=== PATIENT | female | born 1940 | race Caucasian/White ===

== ENCOUNTER 2022-02-13 18:40 | Inpatient (IN) ==
[2022-02-14] MEDS ORDERED: Loratadine 10 MG TABLET PO PRN (12:23)
[2022-02-14] MEDS ORDERED: D5% in Water 1,000 ML IVC PRN (12:26)
[2022-02-14] MEDS ORDERED: Dextrose 4 GM Chewable Tablets PO PRN ×2 (12:26)
[2022-02-14] MEDS ORDERED: *HR* Dextrose 50 % in Water (Syg) 50 ML SYRINGE IVP PRN (12:26)
[2022-02-14] MEDS ORDERED: Acetaminophen 325 MG TABLET PO PRN (12:27)
[2022-02-14] MEDS ORDERED: Ondansetron ODT 4 MG TAB.RAPDIS SL PRN (12:27)
[2022-02-14] MEDS: Ergocalciferol (VIT D2) 50,000 UNIT (1.25MG) CAP PO SCH (17:23)
[2022-02-14] MEDS: *HR* LORazepam 1 MG TABLET PO SCH ×2 (17:29→20:44)
[2022-02-14] MEDS: Insulin LISPRO 300 UNITS/3 ML VIAL SUBQ SCH ×2 (17:29)
[2022-02-14] MEDS: *HR* Heparin 5,000 UNIT/ML VIAL SQ SCH (17:29)
[2022-02-14] MEDS: Insulin DETEMIR 100 UNIT/ML X5UNITS SUBQ SCH (21:04)
[2022-02-15] MEDS: *HR* Heparin 5,000 UNIT/ML VIAL SQ SCH ×2 (05:50→18:10)
[2022-02-15 07:51] LABS: Basophils % 0.3 %; Eosinophils # 0.4 K/mcL (0.0-0.6); Eosinophils % 6.2 %; Hematocrit 25.7 % (35.3-44.9); Hemoglobin 7.4 g/dL (11.5-15.4); Lymphocytes # 0.9 K/mcL (0.6-4.6); Lymphocytes % 12.9 %; Mean Corpuscular HGB Conc 28.8 g/dL (31.6-35.5); Mean Corpuscular Hemoglobin 28.2 pg (28.0-33.3); Mean Corpuscular Volume 98.1 fL (83.0-100.0); Mean Platelet Volume 11.2 fL (9.4-12.4); Monocytes # 0.8 K/mcL (0.0-1.3); Monocytes % 11.4 %; Neutrophils # 4.8 K/mcL (1.6-8.9); Platelet Count 216 K/mcL (140-400); Red Blood Count 2.62 M/mcL (3.82-4.97); Red Cell Distribution Width 14.1 % (11.5-14.5); Segmented Neutrophils % 68.2 %
[2022-02-15 07:52] LABS: Calcium 9.8 mg/dL (8.6-10.3); Potassium 4.1 mEq/L (3.5-5.1)
[2022-02-15 08:16] LABS: Hypochromasia Present (Not Present); Platelet Estimate Normal (Normal)
[2022-02-15] MEDS: Furosemide 40 MG TABLET PO SCH (08:18)
[2022-02-15] MEDS: Insulin LISPRO 300 UNITS/3 ML VIAL SUBQ SCH ×6 (08:18→17:40)
[2022-02-15] MEDS: Cyanocobalamin (B-12) 1,000 MCG TABLET PO SCH (08:18)
[2022-02-15] MEDS: *HR* LORazepam 1 MG TABLET PO SCH ×3 (08:18→21:39)
[2022-02-15] MEDS: amLODIPine 5 MG TABLET PO SCH (08:18)
[2022-02-15] MEDS: lisinopriL 20 MG TABLET PO SCH (08:18)
[2022-02-15] MEDS: Insulin DETEMIR 100 UNIT/ML X5UNITS SUBQ SCH (21:41)
[2022-02-16] MEDS: *HR* Heparin 5,000 UNIT/ML VIAL SQ SCH ×2 (05:34→17:11)
[2022-02-16] MEDS: Insulin LISPRO 300 UNITS/3 ML VIAL SUBQ SCH ×6 (07:36→17:11)
[2022-02-16] MEDS: amLODIPine 5 MG TABLET PO SCH (08:51)
[2022-02-16] MEDS: Furosemide 40 MG TABLET PO SCH (08:51)
[2022-02-16] MEDS: lisinopriL 20 MG TABLET PO SCH (08:51)
[2022-02-16] MEDS: *HR* LORazepam 1 MG TABLET PO SCH ×3 (08:52→22:30)
[2022-02-16] MEDS: Cyanocobalamin (B-12) 1,000 MCG TABLET PO SCH (08:52)
[2022-02-16] MEDS: Insulin DETEMIR 100 UNIT/ML X5UNITS SUBQ SCH (22:30)
[2022-02-17] MEDS: *HR* Heparin 5,000 UNIT/ML VIAL SQ SCH ×2 (06:39→22:17)
[2022-02-17 07:56] LABS: Calcium 9.2 mg/dL (8.6-10.3); Potassium 3.6 mEq/L (3.5-5.1)
[2022-02-17] MEDS: Insulin LISPRO 300 UNITS/3 ML VIAL SUBQ SCH ×6 (08:36→19:05)
[2022-02-17] MEDS: Cyanocobalamin (B-12) 1,000 MCG TABLET PO SCH (08:37)
[2022-02-17] MEDS: Furosemide 40 MG TABLET PO SCH (08:38)
[2022-02-17] MEDS: *HR* LORazepam 1 MG TABLET PO SCH ×3 (08:39→22:17)
[2022-02-17] MEDS: lisinopriL 20 MG TABLET PO SCH (08:50)
[2022-02-17] MEDS: amLODIPine 5 MG TABLET PO SCH (08:50)
[2022-02-17] MEDS: Insulin DETEMIR 100 UNIT/ML X5UNITS SUBQ SCH (22:18)
[2022-02-18] MEDS: Insulin LISPRO 300 UNITS/3 ML VIAL SUBQ SCH ×6 (09:04→17:23)
[2022-02-18] MEDS: Cyanocobalamin (B-12) 1,000 MCG TABLET PO SCH (09:06)
[2022-02-18] MEDS: amLODIPine 5 MG TABLET PO SCH (09:06)
[2022-02-18] MEDS: Furosemide 40 MG TABLET PO SCH (09:07)
[2022-02-18] MEDS: *HR* LORazepam 1 MG TABLET PO SCH ×3 (09:07→20:58)
[2022-02-18] MEDS: lisinopriL 20 MG TABLET PO SCH (09:07)
[2022-02-18] MEDS: *HR* Heparin 5,000 UNIT/ML VIAL SQ SCH ×2 (10:19→22:00)
[2022-02-18] MEDS: Insulin DETEMIR 100 UNIT/ML X5UNITS SUBQ SCH (20:57)
[2022-02-19] MEDS: lisinopriL 20 MG TABLET PO SCH (08:24)
[2022-02-19] MEDS: Insulin LISPRO 300 UNITS/3 ML VIAL SUBQ SCH ×6 (08:24→16:26)
[2022-02-19] MEDS: *HR* Heparin 5,000 UNIT/ML VIAL SQ SCH ×2 (08:24→19:59)
[2022-02-19] MEDS: *HR* LORazepam 1 MG TABLET PO SCH ×3 (08:25→19:59)
[2022-02-19] MEDS: Cyanocobalamin (B-12) 1,000 MCG TABLET PO SCH (08:25)
[2022-02-19] MEDS: amLODIPine 5 MG TABLET PO SCH (08:25)
[2022-02-19] MEDS: Furosemide 40 MG TABLET PO SCH (08:25)
[2022-02-19] MEDS: Insulin DETEMIR 100 UNIT/ML X5UNITS SUBQ SCH (19:59)
[2022-02-20] MEDS: Insulin LISPRO 300 UNITS/3 ML VIAL SUBQ SCH ×6 (09:54→17:04)
[2022-02-20] MEDS: amLODIPine 5 MG TABLET PO SCH (09:55)
[2022-02-20] MEDS: Cyanocobalamin (B-12) 1,000 MCG TABLET PO SCH (09:56)
[2022-02-20] MEDS: *HR* LORazepam 1 MG TABLET PO SCH ×3 (09:56→22:14)
[2022-02-20] MEDS: Furosemide 40 MG TABLET PO SCH (09:56)
[2022-02-20] MEDS: lisinopriL 20 MG TABLET PO SCH (09:57)
[2022-02-20] MEDS: *HR* Heparin 5,000 UNIT/ML VIAL SQ SCH ×2 (09:57→22:09)
[2022-02-20] MEDS: Insulin DETEMIR 100 UNIT/ML X5UNITS SUBQ SCH (22:09)
[2022-02-21] MEDS: *HR* Heparin 5,000 UNIT/ML VIAL SQ SCH ×2 (09:07→22:14)
[2022-02-21] MEDS: amLODIPine 5 MG TABLET PO SCH (09:07)
[2022-02-21] MEDS: *HR* LORazepam 1 MG TABLET PO SCH ×3 (09:08→22:14)
[2022-02-21] MEDS: lisinopriL 20 MG TABLET PO SCH (09:08)
[2022-02-21] MEDS: Cyanocobalamin (B-12) 1,000 MCG TABLET PO SCH (09:08)
[2022-02-21] MEDS: Furosemide 40 MG TABLET PO SCH (09:08)
[2022-02-21] MEDS: Insulin LISPRO 300 UNITS/3 ML VIAL SUBQ SCH ×6 (09:08→17:02)
[2022-02-21] MEDS: Ergocalciferol (VIT D2) 50,000 UNIT (1.25MG) CAP PO SCH (12:13)
[2022-02-21] MEDS: Insulin DETEMIR 100 UNIT/ML X5UNITS SUBQ SCH (22:14)
[2022-02-21 23:42] LABS: Bilirubin,Urine Negative (Negative); Blood,Urine Large (Negative); Clarity,Urine Clear (Clear); Color,Urine Yellow (Yellow); Glucose,Urine (UA) Normal (Normal); Ketones,Urine Negative (Negative); Leukocyte Esterase,Urine Moderate (Negative); Nitrite,Urine Negative (Negative); Protein,Urine 30 mg/dL (Neg-Trace); Specific Gravity,Urine 1.015 (1.010-1.025); Urobilinogen,Urine Normal (Normal)
[2022-02-21 23:48] LABS: Hyaline Casts,Urine Few per lpf (None Seen); WBC,Urine TNTC per hpf (0-3)
[2022-02-21 23:49] LABS: Budding Yeast,Urine Many per hpf (None Seen); Mucus,Urine Few per lpf (None-Few)
[2022-02-21 23:51] LABS: Squamous Epithelial Cell,Urine Few per hpf (None-Few)
[2022-02-21 23:55] LABS: Bacteria,Urine Moderate per hpf (None-Few); RBC,Urine 15-30 per hpf (0-3)
[2022-02-22] MEDS: Insulin LISPRO 300 UNITS/3 ML VIAL SUBQ SCH ×6 (08:22→18:23)
[2022-02-22] MEDS: *HR* LORazepam 1 MG TABLET PO SCH ×3 (08:25→21:43)
[2022-02-22] MEDS: Furosemide 40 MG TABLET PO SCH ×2 (08:25→08:45)
[2022-02-22] MEDS: amLODIPine 5 MG TABLET PO SCH ×2 (08:25→08:46)
[2022-02-22] MEDS: lisinopriL 20 MG TABLET PO SCH ×2 (08:25→08:46)
[2022-02-22] MEDS: Cyanocobalamin (B-12) 1,000 MCG TABLET PO SCH (08:25)
[2022-02-22] MEDS: *HR* Heparin 5,000 UNIT/ML VIAL SQ SCH (11:56)
[2022-02-22] MEDS ORDERED: *HR* EPINEPHrine 1 MG/10 ML SYRINGE ONE (12:15)
[2022-02-22] MEDS: Insulin DETEMIR 100 UNIT/ML X5UNITS SUBQ SCH (21:42)
[2022-02-22] MEDS ORDERED: Fluconazole 40 MG/ML UDC PO SCH (22:00)
[2022-02-23] MEDS: *HR* Heparin 5,000 UNIT/ML VIAL SQ SCH ×3 (00:49→22:43)
[2022-02-23] MEDS: Fluconazole 100 MG TABLET PO SCH (00:49)
[2022-02-23] MEDS: Insulin LISPRO 300 UNITS/3 ML VIAL SUBQ SCH ×6 (09:21→17:18)
[2022-02-23] MEDS: *HR* LORazepam 1 MG TABLET PO SCH ×3 (09:24→21:21)
[2022-02-23] MEDS: lisinopriL 20 MG TABLET PO SCH (09:24)
[2022-02-23] MEDS: Cyanocobalamin (B-12) 1,000 MCG TABLET PO SCH (09:24)
[2022-02-23] MEDS: amLODIPine 5 MG TABLET PO SCH (09:24)
[2022-02-23] MEDS: Furosemide 40 MG TABLET PO SCH (09:24)
[2022-02-23] MEDS: cefTRIAXone 1,000 MG in 0.9 % Sodium Chloride Mini Bag 100 ML IVPB SCH (21:18)
[2022-02-23] MEDS: Insulin DETEMIR 100 UNIT/ML X5UNITS SUBQ SCH (21:22)
[2022-02-24] MEDS: *HR* LORazepam 1 MG TABLET PO SCH ×3 (08:14→21:48)
[2022-02-24] MEDS: Cyanocobalamin (B-12) 1,000 MCG TABLET PO SCH (08:14)
[2022-02-24] MEDS: cefTRIAXone 1,000 MG in 0.9 % Sodium Chloride Mini Bag 100 ML IVPB SCH (08:15)
[2022-02-24] MEDS: lisinopriL 20 MG TABLET PO SCH (08:16)
[2022-02-24] MEDS: Furosemide 40 MG TABLET PO SCH (08:17)
[2022-02-24] MEDS: amLODIPine 5 MG TABLET PO SCH (08:18)
[2022-02-24] MEDS: Insulin LISPRO 300 UNITS/3 ML VIAL SUBQ SCH ×6 (08:19→19:21)
[2022-02-24] MEDS: *HR* Heparin 5,000 UNIT/ML VIAL SQ SCH ×2 (11:13→21:52)
[2022-02-24] MEDS: Insulin DETEMIR 100 UNIT/ML X5UNITS SUBQ SCH (21:49)
[2022-02-25] MEDS: Fluconazole 100 MG TABLET PO SCH (01:01)
[2022-02-25 10:17] LABS: Hematocrit 32.3 % (35.3-44.9); Hemoglobin 8.5 g/dL (11.5-15.4); Mean Corpuscular HGB Conc 26.3 g/dL (31.6-35.5); Mean Corpuscular Hemoglobin 29.2 pg (28.0-33.3); Mean Platelet Volume 10.9 fL (9.4-12.4); Platelet Count 152 K/mcL (140-400); Red Blood Count 2.91 M/mcL (3.82-4.97); Red Cell Distribution Width 15.3 % (11.5-14.5); White Blood Count 7.4 K/mcL (4.3-11.1)
[2022-02-25] MEDS: *HR* Heparin 5,000 UNIT/ML VIAL SQ SCH ×2 (10:21→20:27)
[2022-02-25] MEDS: amLODIPine 5 MG TABLET PO SCH (10:21)
[2022-02-25] MEDS: Furosemide 40 MG TABLET PO SCH (10:21)
[2022-02-25] MEDS: cefTRIAXone 1,000 MG in 0.9 % Sodium Chloride Mini Bag 100 ML IVPB SCH (10:22)
[2022-02-25] MEDS: Cyanocobalamin (B-12) 1,000 MCG TABLET PO SCH (10:22)
[2022-02-25] MEDS: *HR* LORazepam 1 MG TABLET PO SCH ×3 (10:22→20:27)
[2022-02-25 10:32] LABS: Potassium 3.9 mEq/L (3.5-5.1)
[2022-02-25] MEDS: lisinopriL 20 MG TABLET PO SCH (10:39)
[2022-02-25] MEDS: Insulin LISPRO 300 UNITS/3 ML VIAL SUBQ SCH ×6 (11:54→17:39)
[2022-02-25] MEDS: Insulin DETEMIR 100 UNIT/ML X5UNITS SUBQ SCH (20:27)
[2022-02-26] MEDS: lisinopriL 20 MG TABLET PO SCH (08:23)
[2022-02-26] MEDS: *HR* LORazepam 1 MG TABLET PO SCH ×3 (08:23→21:31)
[2022-02-26] MEDS: Furosemide 40 MG TABLET PO SCH (08:24)
[2022-02-26] MEDS: amLODIPine 5 MG TABLET PO SCH (08:24)
[2022-02-26] MEDS: Cyanocobalamin (B-12) 1,000 MCG TABLET PO SCH (08:25)
[2022-02-26] MEDS: Insulin LISPRO 300 UNITS/3 ML VIAL SUBQ SCH ×6 (08:26→18:30)
[2022-02-26] MEDS: cefTRIAXone 1,000 MG in 0.9 % Sodium Chloride Mini Bag 100 ML IVPB SCH (11:07)
[2022-02-26] MEDS: *HR* Heparin 5,000 UNIT/ML VIAL SQ SCH ×2 (11:15→21:33)
[2022-02-26] MEDS: Insulin DETEMIR 100 UNIT/ML X5UNITS SUBQ SCH (21:31)
[2022-02-26] MEDS: Fluconazole 100 MG TABLET PO SCH (23:54)
[2022-02-27] MEDS: *HR* LORazepam 1 MG TABLET PO SCH ×3 (09:38→21:01)
[2022-02-27] MEDS: lisinopriL 20 MG TABLET PO SCH (09:39)
[2022-02-27] MEDS: amLODIPine 5 MG TABLET PO SCH (09:39)
[2022-02-27] MEDS: Furosemide 40 MG TABLET PO SCH (09:39)
[2022-02-27] MEDS: Cyanocobalamin (B-12) 1,000 MCG TABLET PO SCH (09:41)
[2022-02-27] MEDS: *HR* Heparin 5,000 UNIT/ML VIAL SQ SCH ×2 (09:42→21:04)
[2022-02-27] MEDS: Insulin LISPRO 300 UNITS/3 ML VIAL SUBQ SCH ×6 (09:42→17:22)
[2022-02-27] MEDS: Insulin DETEMIR 100 UNIT/ML X5UNITS SUBQ SCH (21:02)
[2022-02-28] MEDS: Furosemide 40 MG TABLET PO SCH (08:15)
[2022-02-28] MEDS: amLODIPine 5 MG TABLET PO SCH (08:15)
[2022-02-28] MEDS: *HR* Heparin 5,000 UNIT/ML VIAL SQ SCH ×2 (08:15→20:47)
[2022-02-28] MEDS: Insulin LISPRO 300 UNITS/3 ML VIAL SUBQ SCH ×6 (08:16→17:17)
[2022-02-28] MEDS: lisinopriL 20 MG TABLET PO SCH (08:16)
[2022-02-28] MEDS: Cyanocobalamin (B-12) 1,000 MCG TABLET PO SCH (08:16)
[2022-02-28] MEDS: *HR* LORazepam 1 MG TABLET PO SCH ×3 (08:16→20:45)
[2022-02-28] MEDS: Ergocalciferol (VIT D2) 50,000 UNIT (1.25MG) CAP PO SCH (12:35)
[2022-02-28] MEDS: Insulin DETEMIR 100 UNIT/ML X5UNITS SUBQ SCH (20:47)
[2022-03-01] MEDS: Insulin LISPRO 300 UNITS/3 ML VIAL SUBQ SCH ×6 (07:54→18:59)
[2022-03-01] MEDS: *HR* LORazepam 1 MG TABLET PO SCH ×3 (08:52→20:59)
[2022-03-01] MEDS: Furosemide 40 MG TABLET PO SCH (08:52)
[2022-03-01] MEDS: Cyanocobalamin (B-12) 1,000 MCG TABLET PO SCH (08:52)
[2022-03-01] MEDS: amLODIPine 5 MG TABLET PO SCH (08:53)
[2022-03-01] MEDS: lisinopriL 20 MG TABLET PO SCH (08:53)
[2022-03-01] MEDS: *HR* Heparin 5,000 UNIT/ML VIAL SQ SCH ×2 (11:44→20:59)
[2022-03-01] MEDS: Insulin DETEMIR 100 UNIT/ML X5UNITS SUBQ SCH (20:59)
[2022-03-02 07:52] LABS: Calcium 8.9 mg/dL (8.6-10.3)
[2022-03-02] MEDS: amLODIPine 5 MG TABLET PO SCH (07:52)
[2022-03-02] MEDS: *HR* LORazepam 1 MG TABLET PO SCH ×3 (07:52→20:28)
[2022-03-02] MEDS: Furosemide 40 MG TABLET PO SCH (07:53)
[2022-03-02] MEDS: Cyanocobalamin (B-12) 1,000 MCG TABLET PO SCH (07:53)
[2022-03-02] MEDS: lisinopriL 20 MG TABLET PO SCH (07:53)
[2022-03-02] MEDS: Insulin LISPRO 300 UNITS/3 ML VIAL SUBQ SCH ×6 (08:00→17:37)
[2022-03-02] MEDS: *HR* Heparin 5,000 UNIT/ML VIAL SQ SCH ×2 (11:48→22:32)
[2022-03-02] MEDS: Insulin DETEMIR 100 UNIT/ML X5UNITS SUBQ SCH (20:29)
[2022-03-03] MEDS: Insulin LISPRO 300 UNITS/3 ML VIAL SUBQ SCH ×6 (07:44→15:43)
[2022-03-03] MEDS: Furosemide 40 MG TABLET PO SCH (07:45)
[2022-03-03] MEDS: amLODIPine 5 MG TABLET PO SCH (07:45)
[2022-03-03] MEDS: lisinopriL 20 MG TABLET PO SCH (07:46)
[2022-03-03] MEDS: *HR* LORazepam 1 MG TABLET PO SCH ×3 (09:39→20:14)
[2022-03-03] MEDS: *HR* Heparin 5,000 UNIT/ML VIAL SQ SCH ×2 (09:40→23:47)
[2022-03-03] MEDS: Cyanocobalamin (B-12) 1,000 MCG TABLET PO SCH (09:40)
[2022-03-03] MEDS: Insulin DETEMIR 100 UNIT/ML X5UNITS SUBQ SCH (20:13)
[2022-03-04] MEDS: Insulin LISPRO 300 UNITS/3 ML VIAL SUBQ SCH ×6 (08:30→14:35)
[2022-03-04] MEDS: lisinopriL 20 MG TABLET PO SCH (08:31)
[2022-03-04] MEDS: *HR* LORazepam 1 MG TABLET PO SCH ×3 (08:31→22:13)
[2022-03-04] MEDS: Furosemide 40 MG TABLET PO SCH (08:31)
[2022-03-04] MEDS: amLODIPine 5 MG TABLET PO SCH (08:31)
[2022-03-04] MEDS: Cyanocobalamin (B-12) 1,000 MCG TABLET PO SCH (08:32)
[2022-03-04] MEDS: *HR* Heparin 5,000 UNIT/ML VIAL SQ SCH (12:38)
[2022-03-04] MEDS: Insulin DETEMIR 100 UNIT/ML X5UNITS SUBQ SCH (22:13)
[2022-03-05] MEDS: *HR* Heparin 5,000 UNIT/ML VIAL SQ SCH ×3 (00:10→22:50)
[2022-03-05] MEDS: Insulin LISPRO 300 UNITS/3 ML VIAL SUBQ SCH ×6 (08:01→18:22)
[2022-03-05] MEDS: *HR* LORazepam 1 MG TABLET PO SCH ×3 (09:28→22:50)
[2022-03-05] MEDS: amLODIPine 5 MG TABLET PO SCH (09:29)
[2022-03-05] MEDS: lisinopriL 20 MG TABLET PO SCH (09:29)
[2022-03-05] MEDS: Furosemide 40 MG TABLET PO SCH (09:30)
[2022-03-05] MEDS: Cyanocobalamin (B-12) 1,000 MCG TABLET PO SCH (09:37)
[2022-03-05 10:49] LABS: Hemoglobin 7.9 g/dL (11.5-15.4); Mean Corpuscular HGB Conc 30.4 g/dL (31.6-35.5); Mean Corpuscular Hemoglobin 29.6 pg (28.0-33.3); Mean Corpuscular Volume 97.4 fL (83.0-100.0); Mean Platelet Volume 10.8 fL (9.4-12.4); Platelet Count 177 K/mcL (140-400); Red Blood Count 2.67 M/mcL (3.82-4.97); Red Cell Distribution Width 14.9 % (11.5-14.5)
[2022-03-05] MEDS: Insulin DETEMIR 100 UNIT/ML X5UNITS SUBQ SCH (22:50)
[2022-03-06] MEDS: Furosemide 40 MG TABLET PO SCH (07:25)
[2022-03-06] MEDS: Cyanocobalamin (B-12) 1,000 MCG TABLET PO SCH (07:25)
[2022-03-06] MEDS: lisinopriL 20 MG TABLET PO SCH (07:26)
[2022-03-06] MEDS: *HR* LORazepam 1 MG TABLET PO SCH ×3 (07:26→20:36)
[2022-03-06] MEDS: amLODIPine 5 MG TABLET PO SCH (07:26)
[2022-03-06] MEDS: Insulin LISPRO 300 UNITS/3 ML VIAL SUBQ SCH ×6 (07:27→16:45)
[2022-03-06] MEDS: *HR* Heparin 5,000 UNIT/ML VIAL SQ SCH ×2 (11:54→20:37)
[2022-03-06] MEDS: Insulin DETEMIR 100 UNIT/ML X5UNITS SUBQ SCH (20:37)
[2022-03-07] MEDS: *HR* LORazepam 1 MG TABLET PO SCH ×3 (07:29→21:08)
[2022-03-07] MEDS: amLODIPine 5 MG TABLET PO SCH (07:29)
[2022-03-07] MEDS: Furosemide 40 MG TABLET PO SCH (07:29)
[2022-03-07] MEDS: Cyanocobalamin (B-12) 1,000 MCG TABLET PO SCH (07:29)
[2022-03-07] MEDS: lisinopriL 20 MG TABLET PO SCH (07:29)
[2022-03-07] MEDS: Insulin LISPRO 300 UNITS/3 ML VIAL SUBQ SCH ×6 (07:30→16:33)
[2022-03-07] MEDS: *HR* Heparin 5,000 UNIT/ML VIAL SQ SCH ×2 (11:25→21:08)
[2022-03-07] MEDS: Insulin DETEMIR 100 UNIT/ML X5UNITS SUBQ SCH (21:08)
[2022-03-08] MEDS: Insulin LISPRO 300 UNITS/3 ML VIAL SUBQ SCH ×6 (07:31→18:31)
[2022-03-08] MEDS: Furosemide 40 MG TABLET PO SCH (07:31)
[2022-03-08] MEDS: amLODIPine 5 MG TABLET PO SCH (07:31)
[2022-03-08] MEDS: *HR* LORazepam 1 MG TABLET PO SCH ×3 (07:31→22:01)
[2022-03-08] MEDS: Cyanocobalamin (B-12) 1,000 MCG TABLET PO SCH (07:31)
[2022-03-08] MEDS: lisinopriL 20 MG TABLET PO SCH (07:31)
[2022-03-08] MEDS: *HR* Heparin 5,000 UNIT/ML VIAL SQ SCH ×2 (13:14→22:02)
[2022-03-08] MEDS: Insulin DETEMIR 100 UNIT/ML X5UNITS SUBQ SCH (22:01)
[2022-03-09 07:42] VITALS: O2SAT 96
[2022-03-09 08:57] LABS: Mean Corpuscular HGB Conc 29.6 g/dL (31.6-35.5); Mean Corpuscular Hemoglobin 28.8 pg (28.0-33.3); Mean Corpuscular Volume 97.1 fL (83.0-100.0); Mean Platelet Volume 10.3 fL (9.4-12.4); Platelet Count 250 K/mcL (140-400); Red Blood Count 2.78 M/mcL (3.82-4.97); Red Cell Distribution Width 14.5 % (11.5-14.5); White Blood Count 5.7 K/mcL (4.3-11.1)
[2022-03-09 09:14] LABS: Calcium 9.2 mg/dL (8.6-10.3); Potassium 4.1 mEq/L (3.5-5.1)
[2022-03-09] MEDS: Insulin LISPRO 300 UNITS/3 ML VIAL SUBQ SCH ×6 (10:06→17:43)
[2022-03-09] MEDS: *HR* LORazepam 1 MG TABLET PO SCH ×3 (10:07→22:05)
[2022-03-09] MEDS: Cyanocobalamin (B-12) 1,000 MCG TABLET PO SCH (10:07)
[2022-03-09] MEDS: lisinopriL 20 MG TABLET PO SCH (10:07)
[2022-03-09] MEDS: Furosemide 40 MG TABLET PO SCH (10:07)
[2022-03-09] MEDS: amLODIPine 5 MG TABLET PO SCH (10:07)
[2022-03-09] MEDS: *HR* Heparin 5,000 UNIT/ML VIAL SQ SCH ×2 (10:08→22:05)
[2022-03-09] MEDS: Insulin DETEMIR 100 UNIT/ML X5UNITS SUBQ SCH (22:05)
[2022-03-10 01:10] VITALS: BP 122/60; PULSE 62; RESP 14; TEMP 98.2
== END 2022-03-09 23:05 | disposition home health service (06) | DRG 682 ==
LOC: INPPIK 02-14 16:50
PROVIDERS: ADMIT Internal Medicine; ATTEND Internal Medicine